=== PATIENT | male | born 1960 | race Caucasian/White ===

== ENCOUNTER 2016-07-04 07:50 | Emergency (ER) | payer BC, OTHER ==
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
[2016-07-04] MEDS ORDERED: Cyclobenzaprine 10 MG Tab ONE (09:16)
[2016-07-04] MEDS ORDERED: Cyclobenzaprine 10 MG Tab PO ONE (09:16)
== END 2016-07-04 09:44 | disposition home or self-care (01) ==
LOC: DL.ED 07:50
DX: S29.011A Strain of muscle and tendon of front wall of thorax, initial encounter (principal); Z79.899 Other long term (current) drug therapy; X58.XXXA Exposure to other specified factors, initial encounter; Y93.89 Activity, other specified
CPT/HCPCS: 71101-LT; 99283; A9270-GY

== ENCOUNTER 2024-01-22 03:34 | Emergency (ER) | payer BC ==
[2024-01-22] MEDS: Sodium Chloride 0.9% 1,000 ML IV ONE ×3 (04:10→12:06)
[2024-01-22 04:12] LABS: BASOPHILS PERCENT AUTO 0.1 % (0.0-1.0); EOSINOPHILS PERCENT AUTO 0.3 % (1.0-3.0); HEMATOCRIT 46.5 % (40.0-54.0); HEMOGLOBIN 15.7 g/dL (14.0-18.0); LYMPHOCYTES PERCENT AUTO 5.3 % (20.5-50.1); MEAN CORPUSCULAR HEMOGLOBIN 30.7 pg (27.0-34.0); MEAN CORPUSCULAR HGB CONC 33.8 g/dL (33.0-35.0); MEAN CORPUSCULAR VOLUME 90.8 fL (80-100); NEUTROPHILS PERCENT AUTO 83.3 % (42.2-75.2); PLATELET COUNT,PLT 269 10^3/uL (150-450); RED BLOOD CELL COUNT 5.12 10^6/uL (4.6-6.2); WHITE BLOOD CELL COUNT,WBC 16.4 10^3/uL (5.0-10.0)
[2024-01-22 04:30] LABS: LACTIC ACID 1.2 mmol/L (0.4-2.0)
[2024-01-22 04:42] LABS: ALBUMIN 3.6 g/dL (3.4-5.0); ANION GAP 13.7 mEq/L (7-13); BILIRUBIN TOTAL 0.6 mg/dL (0.2-1.0); BUN/CREATININE RATIO 14.7 (No establ ref range); CALCIUM 8.9 mg/dL (8.5-10.1); CREATININE 0.95 mg/dL (0.70-1.30); EST CRCL DRUG DOSING (CG) 80.62 mL/min; MAGNESIUM 1.8 mg/dL (1.8-2.4); POTASSIUM,K 3.7 mmol/L (3.5-5.1); PROTEIN TOTAL,TP 7.3 g/dL (6.4-8.2)
[2024-01-22] MEDS: Iopamidol 612 MG/ML 100 ML Bottle IVPUSH ONE (04:58)
[2024-01-22] MEDS: Benzocaine 20% Topical Spray UD MUCMEM ONE ×2 (06:09)
[2024-01-22] MEDS: Benzocaine 20% Topical Spray UD ONE (06:09)
[2024-01-22] MEDS ORDERED: Ondansetron 4 MG/2 ML SDV IVPUSH PRN (06:14)
[2024-01-22] MEDS ORDERED: Morphine 4 MG/ML Syringe IVPUSH PRN (06:51)
[2024-01-22] MEDS: cefTRIAXone 2 GM in Sodium Chloride 0.9% 100 ML IV ONE (10:51)
[2024-01-22] MEDS: Sodium Chloride 0.9% 1,000 ML IV SCH (10:53)
[2024-01-22 12:10] LABS: BASOPHILS PERCENT AUTO 0.1 % (0.0-1.0); EOSINOPHILS PERCENT AUTO 0.2 % (1.0-3.0); HEMATOCRIT 43.7 % (40.0-54.0); HEMOGLOBIN 14.4 g/dL (14.0-18.0); LYMPHOCYTES PERCENT AUTO 8.2 % (20.5-50.1); MEAN CORPUSCULAR HEMOGLOBIN 30.3 pg (27.0-34.0); MEAN CORPUSCULAR VOLUME 91.8 fL (80-100); MONOCYTES PERCENT AUTO 20.1 % (2-8); NEUTROPHILS PERCENT AUTO 71.4 % (42.2-75.2); PLATELET COUNT,PLT 246 10^3/uL (150-450); RED BLOOD CELL COUNT 4.76 10^6/uL (4.6-6.2); WHITE BLOOD CELL COUNT,WBC 10.3 10^3/uL (5.0-10.0)
[2024-01-22 12:30] LABS: ALBUMIN 3.1 g/dL (3.4-5.0); ANION GAP 12.9 mEq/L (7-13); BILIRUBIN TOTAL 0.4 mg/dL (0.2-1.0); BUN/CREATININE RATIO 13.5 (No establ ref range); CALCIUM 8.1 mg/dL (8.5-10.1); CREATININE 0.89 mg/dL (0.70-1.30); EST CRCL DRUG DOSING (CG) 86.06 mL/min; POTASSIUM,K 3.9 mmol/L (3.5-5.1); PROTEIN TOTAL,TP 6.6 g/dL (6.4-8.2)
[2024-01-22 12:31] LABS: A/G RATIO 0.89
[2024-01-22 12:33] LABS: LACTIC ACID 0.9 mmol/L (0.4-2.0)
[2024-01-23 07:27] VITALS: BP 160/90; PULSE 99
== END 2024-01-23 08:00 ==
LOC: DL.ED 03:34
DX: K56.609 Unspecified intestinal obstruction, unspecified as to partial versus complete obstruction (principal); Z87.891 Personal history of nicotine dependence; Z79.899 Other long term (current) drug therapy
CPT/HCPCS: 36415; 43752; 74018; 74177; 80053; 83605; 83690; 83735; 85025; 96361; 96374; 99285-25; A9270-GY; J0696; J3490; J7030; Q9967